=== PATIENT | male | born 1955 | race Caucasian/White ===

== ENCOUNTER → 2023-08-13 | Outpatient (REF) | payer MEDICARE, BC ==
[2023-08-13 18:42] LABS: PERCENT SATURATION 24.9 % (19.7-50.0)
[2023-08-13 18:43] LABS: FERRITIN 48.9 NG/ML (10.5-307.3)
== END ==
LOC: M LAB REF 16:29
PROVIDERS: ATTEND Internal Medicine
DX: D64.9 Anemia, unspecified (principal)

== ENCOUNTER → 2024-02-07 | Outpatient (REF) | LOC: M PLAIMG 12:52 | PROVIDERS: ATTEND Nurse Practitioner Family | DX: M25.561 Pain in right knee (principal); M25.562 Pain in left knee; M25.571 Pain in right ankle and joints of right foot; M25.572 Pain in left ankle and joints of left foot ==

== ENCOUNTER → 2024-03-24 | Outpatient (CLI) | payer MEDICARE, BC | LOC: M RAD 07:27 | PROVIDERS: ATTEND Internal Medicine | DX: F17.210 Nicotine dependence, cigarettes, uncomplicated (principal) ==

== ENCOUNTER → 2024-06-24 | Outpatient (REF) | payer MEDICARE, BC ==
[2024-06-26 08:38] LABS: T P ELECTROPHORESIS SO 5.6 g/dL (6.1-8.1)
[2024-06-26 12:52] LABS: FREE KAPPA LIGHT CHAINS SERUM 33.7 mg/L (3.3-19.4); FREE LAMBDA LIGHT CHAINS SERUM 88.1 mg/L (5.7-26.3); KAPPA/LAMBDA RATIO SERUM 0.38 (0.26-1.65)
[2024-06-30 08:57] LABS: ALBUMIN SPEP 3.1 g/dL (3.8-4.8); ALPHA-1-GLOBULINS SO 0.3 g/dL (0.2-0.3); ALPHA-2-GLOBULINS SO 0.8 g/dL (0.5-0.9); BETA 2 GLOBULIN 0.3 g/dL (0.2-0.5); BETA-GLOBULIN SO 0.4 g/dL (0.4-0.6); GAMMA GLOBULINS SO 0.7 g/dL (0.8-1.7)
== END ==
LOC: M LAB REF 16:48
PROVIDERS: ATTEND Internal Medicine
DX: N17.9 Acute kidney failure, unspecified (principal); R74.01 Elevation of levels of liver transaminase levels; I25.10 Atherosclerotic heart disease of native coronary artery without angina pectoris

== ENCOUNTER → 2024-06-26 | Outpatient (CLI) | payer MEDICARE, BC | LOC: M RAD 09:16 | PROVIDERS: ATTEND Internal Medicine | DX: K57.90 Diverticulosis of intestine, part unspecified, without perforation or abscess without bleeding (principal); R63.4 Abnormal weight loss; R10.9 Unspecified abdominal pain ==

== ENCOUNTER → 2024-07-22 | Outpatient (CLI) | payer MEDICARE, BC | LOC: M RAD 09:26 | PROVIDERS: ATTEND Internal Medicine | DX: N17.9 Acute kidney failure, unspecified (principal); R10.9 Unspecified abdominal pain; I12.9 Hypertensive chronic kidney disease with stage 1 through stage 4 chronic kidney disease, or unspecified chronic kidney disease ==

== ENCOUNTER → 2024-08-11 | Outpatient (REF) | payer MEDICARE, BC ==
[2024-08-11 17:16] LABS: INR 1.02; PROTHROMBIN TIME 13.1 SECONDS (12.5-14.5)
[2024-08-11 18:34] LABS: COMPLEMENT C3 117.7 MG/DL (90.0-170.0)
[2024-08-12 06:41] LABS: COMPLEMENT C4 31.7 MG/DL (12-36)
[2024-08-13 15:17] LABS: PROTEIN CREATININE RATIO 2478 mg/g creat (25-148); T PROTEIN CREATININE RATIO 2.478 (0.025-0.148); UPEP CREATININE 136 mg/dL (20-320)
[2024-08-14 05:57] LABS: UPEP ALBUMIN 86 %; UPEP TOTAL PROTEIN 337 mg/dL (5-25); URINE ALPHA 1 GLOBULIN 4 %; URINE ALPHA 2 GLOBULIN 3 %; URINE BETA GLOBULIN 5 %; URINE GAMMA GLOBULIN 2 %
== END ==
LOC: M LAB REF 16:54
PROVIDERS: ATTEND Internal Medicine Nephrology
DX: R80.9 Proteinuria, unspecified (principal)

== ENCOUNTER → 2024-08-12 | Outpatient (REF) | payer MEDICARE, BC ==
[2024-08-12 19:47] LABS: STABLE ALKPHOS 108 U/L
[2024-08-12 19:48] LABS: % LABILE ALKALINE PHOSPHATASE 39 %; LABILE ALKPHOS 69 U/L
[2024-08-13 09:18] LABS: PROTEIN, TOTAL SO 5.7 g/dL (6.1-8.1)
[2024-08-14 13:57] LABS: FREE KAPPA LIGHT CHAINS SERUM 35.1 mg/L (3.3-19.4); FREE LAMBDA LIGHT CHAINS SERUM 97.1 mg/L (5.7-26.3); KAPPA/LAMBDA RATIO SERUM 0.36 (0.26-1.65)
[2024-08-17 07:42] LABS: ALBUMIN SO 3.1 g/dL (3.8-4.8); ALPHA 1 GLOBULINS SO 0.3 g/dL (0.2-0.3); ALPHA 2 GLOBULINS SO 0.7 g/dL (0.5-0.9); BETA 2 GLOBULIN SO 0.3 g/dL (0.2-0.5); BETA GLOBULIN SO 0.4 g/dL (0.4-0.6); GAMMA GLOBULINS SO 0.7 g/dL (0.8-1.7)
== END ==
LOC: M LAB REF 12:53
PROVIDERS: ATTEND Internal Medicine
DX: R93.3 Abnormal findings on diagnostic imaging of other parts of digestive tract (principal); N17.9 Acute kidney failure, unspecified; R10.9 Unspecified abdominal pain

== ENCOUNTER → 2024-09-01 | Outpatient (CLI) | payer MEDICARE, BC ==
[~2024-09-01] VITALS: Ht 175.3 cm; Wt 63.0 kg
[~2024-09-01] MED LIST: ACETAMINOPHEN 325 MG TAB PO PRN; LIDOCAINE 1% MDV 20ML VIAL As Ordered ONE; MIDAZOLAM INJ 2MG/2ML VIAL As Ordered ONE; NS 250 ML IV SCH; ONDANSETRON 4MG 2ML VIAL IV PRN; PERCOCET 5MG/325MG TAB PO PRN; fentaNYL 100 MCG/2 ML INJECTION As Ordered ONE
[2024-09-01 07:10] VITALS: TEMP 97.5
[2024-09-01 10:30] VITALS: BP 96/59; O2SAT 97
== END ==
LOC: M IRPRO 06:50
PROVIDERS: ATTEND Internal Medicine Nephrology
DX: R80.9 Proteinuria, unspecified (principal)
CPT/HCPCS: 50200; 76942; 88300; 99152; 99153; J2250; J3010

== ENCOUNTER → 2024-09-07 | Outpatient (REF) | payer MEDICARE, BC ==
[~2024-09-07] MED LIST changes: -ACETAMINOPHEN 325 MG TAB PO PRN; +ATOR80TA59; +CLOP75TA2; -LIDOCAINE 1% MDV 20ML VIAL As Ordered ONE; +METO1TAB7; -MIDAZOLAM INJ 2MG/2ML VIAL As Ordered ONE; -NS 250 ML IV SCH; -ONDANSETRON 4MG 2ML VIAL IV PRN; -PERCOCET 5MG/325MG TAB PO PRN; -fentaNYL 100 MCG/2 ML INJECTION As Ordered ONE
[2024-09-09 08:57] LABS: T P ELECTROPHORESIS SO 6.6 g/dL (6.1-8.1)
[2024-09-10 11:52] LABS: KAPPA/LAMBDA RATIO SERUM 0.44 (0.26-1.65)
[2024-09-11 07:23] LABS: ALBUMIN SPEP 3.6 g/dL (3.8-4.8); ALPHA-1-GLOBULINS SO 0.4 g/dL (0.2-0.3); ALPHA-2-GLOBULINS SO 0.9 g/dL (0.5-0.9); BETA 2 GLOBULIN 0.4 g/dL (0.2-0.5); BETA-GLOBULIN SO 0.5 g/dL (0.4-0.6); GAMMA GLOBULINS SO 0.8 g/dL (0.8-1.7)
== END ==
LOC: M LAB REF 16:55
PROVIDERS: ATTEND Internal Medicine Nephrology
DX: R80.9 Proteinuria, unspecified (principal)

== ENCOUNTER 2024-09-26 11:58 | Emergency (ER) | payer MEDICARE, BC ==
[~2024-09-26] VITALS: Ht 175.3 cm; Wt 62.0 kg
[~2024-09-26 11:58] MED LIST changes: -ATOR80TA59; +ATOR80TA59 PO; -CLOP75TA2; +CLOP75TA2 PO; -METO1TAB7; +METO1TAB7 PO
[2024-09-26 12:12] VITALS: TEMP 97.5
[2024-09-26] MEDS: ASPIRIN 81MG CHEW TABLET PO ONE (12:18)
[2024-09-26 12:26] LABS: BASO % 0.5 % (0.0-1.0); EOS # 0.4 10^3/uL (0.0-0.5); EOS % 4.7 % (0.0-3.0); HEMATOCRIT 41.9 % (42.0-52.0); HEMOGLOBIN 13.7 g/dl (13.5-17.5); LYMPH % 24.2 % (24.0-44.0); MEAN CORPUSCULAR HEMOGLOBIN 31.6 pg (27.0-33.0); MEAN CORPUSCULAR HGB CONC 32.7 g/dl (32.0-36.5); MEAN CORPUSCULAR VOLUME 96.8 fl (80.0-96.0); MONO # 0.9 10^3/uL (0.0-0.8); MONO % 10.7 % (2.0-8.0); NEUTROPHILS % 59.7 % (36.0-66.0); PLATELET COUNT, AUTOMATED 220 10^3/uL (150-450); RED BLOOD COUNT 4.33 10^6/uL (4.30-6.10); WHITE BLOOD COUNT 8.3 10^3/uL (4.0-10.0)
[2024-09-26] MEDS: NITROGLYCERIN 0.4MG SUBL TABLET SL PRN (12:30)
[2024-09-26 12:36] LABS: INR 0.95; PARTIAL THROMBOPLASTIN TIME 28.8 SECONDS (24.8-34.2)
[2024-09-26 12:51] VITALS: BP 114/74
[2024-09-26 12:54] LABS: CK-MB VALUE MASS 1.6 NG/ML (<3.6)
[2024-09-26 12:57] LABS: BILIRUBIN,DIRECT 0.2 MG/DL (<0.4); BILIRUBIN,TOTAL 0.5 MG/DL (0.3-1.2); CALCIUM LEVEL 9.1 MG/DL (8.3-10.6); CREATININE FOR GFR 1.35 MG/DL (0.70-1.30); GLOMERULAR FILTRATION RATE 55.6 (>42); POTASSIUM SERUM 4.4 MMOL/L (3.5-5.1); TOTAL PROTEIN 6.2 G/DL (5.7-8.2)
[2024-09-26 12:59] LABS: FREE T4 1.24 NG/DL (0.89-1.76); THYROID STIMULATING HORMONE 8.14 uIU/ML (0.55-4.78)
[2024-09-26 13:01] LABS: MB/CK RELATIVE INDEX 1.79 (< OR =4)
[2024-09-26] MEDS ORDERED: ISOVUE-370 76% 100ML VIAL As Ordered ONE (13:03)
[2024-09-26] MEDS ORDERED: HOME MED LIST COMPLETE! XX SCH (13:45)
[2024-09-26 14:14] LABS: CK-MB VALUE MASS 1.2 NG/ML (<3.6)
[2024-09-26 14:15] LABS: MB/CK RELATIVE INDEX 1.84 (< OR =4)
[2024-09-26] MEDS: MORPHINE 4 MG/ML 1ML VIAL IV ONE (15:00)
[2024-09-26 16:20] LABS: CK-MB VALUE MASS 1.1 NG/ML (<3.6)
[2024-09-26 16:22] LABS: MB/CK RELATIVE INDEX 1.61 (< OR =4)
[2024-09-26 17:45] VITALS: BP 146/88; O2SAT 100
== END 2024-09-26 18:01 | disposition home or self-care (01) ==
LOC: M ED 11:58
DX: R07.9 Chest pain, unspecified (principal); I45.10 Unspecified right bundle-branch block; I44.0 Atrioventricular block, first degree; I25.2 Old myocardial infarction; I12.9 Hypertensive chronic kidney disease with stage 1 through stage 4 chronic kidney disease, or unspecified chronic kidney disease; I25.119 Atherosclerotic heart disease of native coronary artery with unspecified angina pectoris; F17.210 Nicotine dependence, cigarettes, uncomplicated; D80.1 Nonfamilial hypogammaglobulinemia; Z88.5 Allergy status to narcotic agent; Z91.048 Other nonmedicinal substance allergy status; Z79.899 Other long term (current) drug therapy
CPT/HCPCS: 71046; 71275; 80048; 80076; 82550; 82553; 84439; 84443; 84484; 85025; 85610; 85730; 93005; 93041; 94760; 96374; 99285; Q9967

== ENCOUNTER → 2024-10-09 | Outpatient (CLI) | payer MEDICARE, BC ==
[~2024-10-09] MED LIST changes: +PANT20TA6
== END ==
LOC: M CARPUL 10:50
PROVIDERS: ATTEND Specialist
DX: I35.0 Nonrheumatic aortic (valve) stenosis (principal); I08.0 Rheumatic disorders of both mitral and aortic valves; R00.0 Tachycardia, unspecified

== ENCOUNTER → 2024-11-24 | Outpatient (CLI) | payer MEDICARE, BC ==
[~2024-11-24] MED LIST changes: +CYCL1CAP2 PO; +DEXA4TA PO; +LIDOCAINE 1% MDV 20ML VIAL As Ordered ONE
[2024-11-24 12:30] VITALS: TEMP 99.2
[2024-11-24 12:50] LABS: BASO % 0.3 % (0.0-1.0); EOS # 0.2 10^3/uL (0.0-0.5); EOS % 2.6 % (0.0-3.0); HEMATOCRIT 35.9 % (42.0-52.0); HEMOGLOBIN 11.9 g/dl (13.5-17.5); LYMPH % 22.9 % (24.0-44.0); MEAN CORPUSCULAR HEMOGLOBIN 31.3 pg (27.0-33.0); MEAN CORPUSCULAR HGB CONC 33.1 g/dl (32.0-36.5); MEAN CORPUSCULAR VOLUME 94.5 fl (80.0-96.0); MONO # 0.8 10^3/uL (0.0-0.8); MONO % 9.4 % (2.0-8.0); NEUTROPHILS # 5.7 10^3/uL (1.5-8.5); NEUTROPHILS % 64.5 % (36.0-66.0); PLATELET COUNT, AUTOMATED 212 10^3/uL (150-450); WHITE BLOOD COUNT 8.9 10^3/uL (4.0-10.0)
[2024-11-24 13:00] VITALS: BP 127/84; O2SAT 99
== END ==
LOC: M IRPRO 12:04
PROVIDERS: ATTEND Specialist
DX: R77.9 Abnormality of plasma protein, unspecified (principal)

== ENCOUNTER → 2025-02-17 | Outpatient (CLI) | payer MEDICARE, BC ==
[~2025-02-17] MED LIST changes: -LIDOCAINE 1% MDV 20ML VIAL As Ordered ONE; +LOPE1CAP5 PO; +ONDA-84 PO; +PROC10TA5 PO
== END ==
LOC: M RAD 07:38
PROVIDERS: ATTEND Specialist
DX: R74.01 Elevation of levels of liver transaminase levels (principal); N28.1 Cyst of kidney, acquired